=== PATIENT | female | born 1980 | race Caucasian/White ===

== ENCOUNTER → 2021-01-04 10:42 | Outpatient (CLI) | payer OTHER, SELFPAY ==
--- NOTE | ~2021-01-04 | MM_ITS ---
EXAMINATION: MM screening lillian BI w ary HISTORY: Screening mammogram TECHNIQUE: Craniocaudal and mediolateral oblique 3-D tomosynthesis images were obtained and synthetic 2-D images were generated. CAD analysis was submitted and interpreted. COMPARISON: No prior mammogram is available for comparison at this institution. BREAST PARENCHYMAL COMPOSITION: The breasts are almost entirely fatty. FINDINGS: There is no evidence of suspicious mass, calcification, or architectural distortion to sugg est malignancy in either breast. There has been no suspicious interval change. IMPRESSION: 1. No mammographic evidence of malignancy. 2. Recommend routine screening mammography in one year. BI-RADS Category 1: Negative Reviewed, dictated and finalized at location A. MAKER
== END ==
PROVIDERS: Visit Provider Obstetrics & Gynecology
DX: Z12.31 Encounter for screening mammogram for malignant neoplasm of breast (principal)
CPT/HCPCS: 77063; 77067

== ENCOUNTER → 2021-01-04 10:45 | Outpatient (CLI) | payer OTHER, SELFPAY ==
--- NOTE | ~2021-01-04 | US_ITS ---
EXAMINATION: US thyroid DATE: 01/04/2021 11:49 INDICATION: Nontoxic goiter. History of negative thyroid biopsy. TECHNIQUE: Multiple ultrasound images of the thyroid were obtained. COMPARISON: Ultrasound 02/02/18 FINDINGS: The right thyroid lobe measures 3.6 x 1.5 x 1.6 cm. The left thyroid lobe measures 6.1 x 4.4 x 5.9 c m. In the right thyroid lobe, there is a 1.5 cm solid, hypoechoic, pelxk-puzn-fzqi nodule with ill-d efined margin without echogenic foci (TI-RADS TR4). In the left thyroid lobe, there is a 6.1 cm solid , hypoechoic, jtyer-gurc-bfdr nodule with ill-defined margin without echogenic foci (TR4). IMPRESSION: 1. Multinodular goiter, stable from 02/02/2018. Reviewed, dictated and finalized at location A. ER CULLER
== END ==
PROVIDERS: Visit Provider Physician Assistant
DX: E04.2 Nontoxic multinodular goiter (principal)
CPT/HCPCS: 76536

== ENCOUNTER 2021-02-13 13:11 | Outpatient (CLI) | payer OTHER, SELFPAY ==
--- NOTE | ~2021-02-13 | US_ITS ---
EXAMINATION: US FNA w image guidance DATE: 02/13/2021 14:17 INDICATION: Nontoxic single thyroid nodule TECHNIQUE: A time-out was performed to verify the patient's name, date of , and procedure to be performed . The procedure and its benefits and risks were discussed with the patient. Risks specifically discus sed included bleeding and infection. The patient understood the risks and agreed to proceed. The neck was prepped and draped in the usual sterile manner. 3 mL 1% lidocaine was used for local anesthesia . 6 passes were made with a 25G needle into the lesion. Appropriate needle location was documented with continuous sonographic guidance. The specimens were passed to the chemistry technologist in the room. A sterile bandage was applied. There were no immediate complications. FINDINGS: Grayscale ultrasound images demonstrate a 7.2 x 5.3 x 5.3 cm mass positioned anterior to the trachea. Although described as left-sided on the prior study on real-time imaging mass appears to arise from the lower pole of the right thyroid lobe. Subsequent images demonstrate biopsy needles advanced into the 7.2 cm mass. IMPRESSION: 1. Successful ultrasound-guided fine needle aspiration of a 7.2 cm mass which appears to arise from the inferior right thyroid but extends across the midline anterior to the trachea. Reviewed, dictated and finalized at location A.
== END 2021-02-13 13:12 | disposition home or self-care (01) ==
PROVIDERS: PCP Physician Assistant; Visit Provider Otolaryngology
DX: E04.1 Nontoxic single thyroid nodule (principal)
CPT/HCPCS: 10005; 88173; 88305

== ENCOUNTER 2021-05-16 01:47 | Day surgery (SDC) | payer OTHER, SELFPAY ==
[2021-05-08 14:54] VITALS: BMI 41.3
--- NOTE | 2021-05-13 06:41 | W.PM.PROC2 ---
Procedure Note - Detailed Date of Procedure 05/21/21 Pre-op Diagnosis right thyroid mass Post-op Diagnosis same Procedure Performed right thyroidectomy Surgeon Sky Velez MD Description of Procedure patient was prepped and draped fashion general anesthesia low collar incision was made after injecting with xylocaine with adrenaline was a massive thyroid nodule going from the trachea to underneath the clavicle to the far right side after extensive dissection the nodule was entered and removed hemostasis was obtained with bipolar cautery a small strip of Surgicel was placed the dissection was carried out under the clavicle above the subclavian vessels incision was then closed in layers of 4 0 chromic and Monocryl a drain placed in on completion of the procedure glide scope was used to ascertain the mobility of vocal cords both cords appeared to be mobile Estimated Blood Loss 450 Drains Yes Pathology yes Complications No immediate complications Condition stable Disposition PACU
--- NOTE | 2021-05-13 06:41 | PM.HPGS ---
History of Present Illness History of Present Illness Consent: Risks, benefits, and alternatives have been discussed and questions answered. Patient agrees to proceed with procedure. Chief complaint: right thyroid mass Narrative: Bc Hays is a 41 year old female This 6 cm thyroid nodule is admitted for elective excision of the thyroid nodule Review of Systems Review of Systems: All systems reviewed & are unremarkable except as noted in HPI and below PMFSH Social History Social History Smoking status: Never smoker Alcohol intake: unknown Drinks per week: 1 Substance use: never Living arrangements: with family Gender identity (if verbalized by the patient): Female Sexual Orientation (if Verbalized by the Patient): Straight or Heterosexual Spiritual care concerns: No Meds Home Medications and Allergies Allergies Allergy/AdvReac Type Severity Reaction Status Date / Time Sulfa (Sulfonamide Allergy Unknown HIVES Verified 02/20/21 13:22 Antibiotics) hydrocodone AdvReac Unknown NAUSEA Verified 02/20/21 13:22 Exam Narrative: Exam Narrative: chest clear heart without murmurs large thyroid nodule present mouth oropharynx negative neck negative otherwise Assessment and Plan Additional Plan planned elective excision left thyroid nodule
--- NOTE | 2021-05-15 14:20 | WPDANESEPPF ---
Anes - Initial Pre Proc Eval Procedure: Operation Date: 05/16/21 07:45 Proposed Procedures p Right Thyroidectomy - Sky Velez MD Date/Time: 05/15/21 14:20 Surgeon: Sky Velez MD Pre Op Diagnosis: right thyroid mass Patient Data Age: 41 Gender: F Height: 1.75 m Weight: 127.01 kg Allergies Allergy/AdvReac Type Severity Reaction Status Date / Time Sulfa (Sulfonamide Allergy Unknown HIVES Verified 02/20/21 13:22 Antibiotics) hydrocodone AdvReac Unknown NAUSEA Verified 02/20/21 13:22 Patient hx anesthesia problems: post op nausea/vomiting Family hx anesthesia problems: none PMFSH Past Medical History Medical History (Updated 05/15/21 @ 14:21 by Bryon Coulter DO) PONV (postoperative nausea and vomiting) Surgical History Surgical History (Updated 05/15/21 @ 14:21 by Bryon Coulter DO) History of History of hysterectomy Social History Social History Smoking status: Never smoker Alcohol intake: unknown Drinks per week: 1 Substance use: never Living arrangements: with family Gender identity (if verbalized by the patient): Female Sexual Orientation (if Verbalized by the Patient): Straight or Heterosexual Spiritual care concerns: No Anes - Eval Final PreProcedure Day of Procedure 05/15/21 14:20 Patient weight: morbidly obese Heart: regular rate and rhythm Lungs: clear to auscultation and normal air movement Airway: Mallampati scale class II Neurological: alert and oriented Last oral intake: >/= 8 hours ASA classification: III Emergent: no Anesthetic plan: proceed Anesthesia type and monitoring: general ETT and standard monitoring Informed Consent: The patient's anesthetic plan and its attendant risks and benefits were discussed with the patient/family/POA. Questions were solicited and answers provided to the satisfaction of the patient/family/POA.
[2021-05-16] VITALS (12 sets, daily range): BP systolic 115–143; BP diastolic 58–89; PULSE 60–82; RESP 14–20; TEMP 36.4–36.5; O2SAT 93–100
--- NOTE | 2021-05-16 06:09 | WPDHPUPDATE1 ---
History and Physical Update Update Date/Time: 05/16/21 06:09 History and Physical has been reviewed, including an updated exam of the patient. There are NO changes in the patient's condition. Risks, benefits, and alternatives have been discussed and questions answered. Patient agrees to proceed with procedure.
[2021-05-16] MEDS: ACETAMINOPHEN 500 MG TABLET 1000 MG PO (06:15)
[2021-05-16] MEDS: LACTATED RINGERS 1,000 ML 30 ML IV CONT ×2 (06:50→10:02)
[2021-05-16] MEDS: SCOPOLAMINE 1.5 MG PATCH TRANSDERM (07:03)
[2021-05-16] MEDS: FAMOTIDINE 20 MG/2 ML VIAL IV PUSH (07:03)
[2021-05-16] MEDS: ceFAZolin 3 GM/D5W 100 ML 100 ML IVPB (07:43)
[2021-05-16] MEDS: LIDO 1%/EPINEPHRINE 1:100,000 20 ML VIAL 50 ML INFILTRATE (08:52)
[2021-05-16] MEDS: OXYMETAZOLINE HCL 0.05% NAS 15 ML BTL (*BKC) 1 SPRAY NASAL (09:38)
--- NOTE | 2021-05-16 09:51 | P.OP_ITS ---
Procedure Note - Detailed Date of Procedure 05/16/21 Pre-op Diagnosis right thyroid mass Post-op Diagnosis same Procedure Performed Right thyroidectomy Surgeon Sky Velez MD Anesthesia general Description of Procedure patient was prepped and draped in usual fashion after induction of general endotracheal anesthesia low collar incision was made sub platysmal flaps elevated there was a approximately an 8-9 cm mass overlying the trachea going under the clavicle into the superior mediastinum and superiorly dissection started to be to dissection was done to remove the large mass however the thyroid mass was entered and had to be removed in pieces this caused a significant amount of hemorrhage the thyroid was eventually removed in pieces and sent for pathologic examination a prior fine-needle biopsy was benign in nature hemostasis was obtained with bipolar electrocautery strip of Surgicel was placed a flat [place] drain placed in and closed in layers of [place] chromic and Monocryl Estimated Blood Loss 450 Drains Yes Pathology yes Complications No immediate complications Condition stable
[2021-05-16] MEDS: ONDANSETRON INJ 4 MG/2 ML VIAL IV PUSH (10:31)
[2021-05-16] MEDS: fentaNYL CITRATE INJ (*CRX) 100 MCG/2 ML VIAL 25 MCG IV PUSH ×4 (10:44→11:13)
[2021-05-16] MEDS: traMADol HCL (*CRX) 50 MG TABLET PO (12:05)
[2021-05-16] MEDS: diphenhydrAMINE HCl INJ 50 MG/ML VIAL 12.5 MG IV PUSH (12:58)
== END 2021-05-16 13:39 | disposition home or self-care (01) ==
PROVIDERS: PCP Physician Assistant; Visit Provider Otolaryngology
PROC: (CPT 60220; principal; 2021-05-16 07:45)
DX: E04.9 Nontoxic goiter, unspecified (principal); E66.01 Morbid (severe) obesity due to excess calories; Z68.41 Body mass index [BMI] 40.0-44.9, adult
CPT/HCPCS: 60220; 88307; A9270; J0330; J0690; J1100; J1200; J2250; J2405; J2704; J3010; J7120

== ENCOUNTER 2023-06-04 08:23 | Outpatient (CLI) | payer OTHER, SELFPAY ==
--- NOTE | ~2023-06-04 | MM_ITS ---
EXAMINATION: MM screening lillian BI w ary HISTORY: Screening mammogram TECHNIQUE: Craniocaudal and mediolateral oblique 3-D tomosynthesis images were obtained and synthetic 2-D images were generated. CAD analysis was submitted and interpreted. COMPARISON: 09/06/2021 BREAST PARENCHYMAL COMPOSITION: The breasts are almost entirely fatty. FINDINGS: No suspicious mass, calcification, or architectural distortion are identified in either caro ast to suggest malignancy. There has been no suspicious interval change. IMPRESSION: 1. No mammographic evidence of malignancy. 2. Recommend routine screening mammography in one year. BI-RADS Category 1: Negative Reviewed, dictated and finalized at location A.
== END 2023-06-04 08:24 | disposition home or self-care (01) ==
LOC: CHSIMG 08:26
PROVIDERS: PCP Physician Assistant; Visit Provider Physician Assistant
DX: Z12.31 Encounter for screening mammogram for malignant neoplasm of breast (principal)
CPT/HCPCS: 77063; 77067

== ENCOUNTER 2024-06-07 09:26 | Outpatient (CLI) | payer OTHER, SELFPAY ==
--- NOTE | ~2024-06-07 | CT_ITS ---
EXAMINATION: CT abdomen pelvis w con DATE: 06/07/2024 10:29 INDICATION: Left lower quadrant abdominal pain. TECHNIQUE: Computed tomography (CT) of the abdomen and pelvis was performed with 100 mL Omnipaque 350 intravenous contrast. Automated exposure control and iterative reconstruction technique were employe d. The dose-length product was 1671.36 mGy-cm. COMPARISON: None. FINDINGS: The visualized portions of the lung bases demonstrate mild atelectasis. No pleural effusion . The heart size is normal. No pericardial effusion. There is a small sliding hiatal hernia. The live r, spleen, and pancreas are normal. There are gallstones in the gallbladder, which is normal in size. The adrenal glands and right kidney are normal. There is a 4 mm cyst in left kidney. There is a dive rticulum of the sigmoid colon with surrounding fat stranding, consistent with diverticulitis. There a re no dilated loops of bowel. The appendix is normal. There are no pathologically enlarged lymph node s. There is no free intraperitoneal fluid. There is a benign bone island in proximal right femur. The re is mild thoracic and lumbar spondylosis. IMPRESSION: 1. Acute sigmoid diverticulitis. No perforation or abscess. Reviewed, dictated and finalized at location A.
== END 2024-06-07 09:27 | disposition home or self-care (01) ==
LOC: ANHIMG 09:30
PROVIDERS: PCP Physician Assistant; Visit Provider Physician Assistant
DX: R10.32 Left lower quadrant pain (principal); K57.32 Diverticulitis of large intestine without perforation or abscess without bleeding
CPT/HCPCS: 74177; Q9967